=== PATIENT | male | born 2005 | race Caucasian/White ===

== ENCOUNTER 2025-02-04 06:29 | Emergency (ER) | payer OTHER, SELFPAY ==
[2025-02-04 06:31] VITALS: BP 136/90
--- NOTE | 2025-02-04 07:32 | ED.GENMED ---
History of Present Illness
General
Chief Complaint: Throat Problem
Source: patient
Exam Limitations: none
Time Seen by Provider: 02/04/25 07:19
History of Present Illness
History of Present Illness:
19-year-old male presents with 5 days worth of worsening throat pain. He also notes significant congestion and fatigue. No measurable fever. He denies runny nose or cough. No abdominal pain or vomiting or rash. He was seen at the urgent care at
the onset of his symptoms and tests were performed including strep, mono flu and COVID as well as STI testing. All tests are negative. The STI testing is pending. He notes symptoms are worsening. He notes white stuff on his tonsils. He is
healthy otherwise. No other complaints at this time
Phy Exam
Physical Exam
Physical Exam:
General: Well-appearing male no acute respiratory distress
HEENT: Normal cephalic atraumatic TMs normal posterior pharynx with erythema and exudate in the peritonsillar region. No trismus or drooling. No significant adenopathy palpated
Heart: Regular rate and rhythm
Lungs: Clear no wheeze
Abdomen soft nontender
Extremities: No cyanosis
Course
Orders/Labs/Results
Orders:
Orders
02/04/25 07:31
Dexamethasone Sod Phosphate [Decadron] 10 mg IV NOW STA
Ketorolac [Toradol] 15 mg IV NOW STA
02/04/25 07:50
COVID-19 Antigen Urgent
Source: Nasal Swab
Complete Blood Count/With Diff Urgent
Comprehensive Metabolic Panel Urgent
Monotest Urgent
Influenza A+B Rapid Molecular Urgent
CORRY Source: Nasal Swab
Specimen Description:
Rapid Strep Group A Urgent
CORRY Source: Throat/Pharynx
Specimen Description:
Date Specimen was Collected: 02/04/25
Time Specimen was Collected: 07:38
Throat Culture [Throat Culture, Comprehensive] Urgent
CORRY Source: Throat/Pharynx
Specimen Description:
Date Specimen was Collected: 02/04/25
Time Specimen was Collected: 07:38
Abnormal Lab Results
02/04/25
07:50
WBC 13.1 H 10^3/uL
(4.8-10.8)
MCV 76.6 L fL
(80.0-94.0)
MCH 25.7 L pg
(27.0-31.0)
Abs Immat Gran (auto) 0.1 H 10^3/uL
(0-0.05)
Absolute Neuts (auto) 9.9 H 10^3/uL
(1.4-6.5)
Absolute Monos (auto) 1.2 H 10^3/uL
(0.1-0.6)
Lymphocytes % 14.8 L %
(20.5-51.1)
BUN 6 L mg/dl
(9-20)
Glucose 119 H mg/dl
(70-99)
Monoscreen Positive A
(Negative)
02/04/25 07:50
02/04/25 07:50
Vital Signs
Initial and Last Documented VS:
Initial Vital Signs
Temp Pulse Resp BP Pulse Ox
98.9 F 130 20 136/90 96
02/04/25 06:31 02/04/25 06:31 02/04/25 06:31 02/04/25 06:31 02/04/25 06:31
Last Documented Vital Signs
Temp Pulse Resp BP Pulse Ox
98.6 F 95 20 137/84 96
02/04/25 08:13 02/04/25 08:13 02/04/25 08:13 02/04/25 08:13 02/04/25 08:13
MDM/Problems Addressed
Differential Diagnosis Includes:
Patient with sore throat worsening over the past 5 days. Exudative tonsillitis noted on exam. Consider strep pharyngitis versus mono versus COVID or flu. He has STI testing pending. Patient quite symptomatic. Labs ordered monotest ordered
Toradol Decadron ordered.
*Pulse Oximetry
SaO2: 96
Oxygen Mode of Delivery: Room air
Patient hypoxic: no
*Critical Care Note
Total Time (30-74mins, 75-104mins- exclusive of procedures): Not Applicable
Update Note
Update Note:
Patient tested positive for mono COVID flu and strep test were negative. He is feeling better after Toradol and Decadron. Recommend continued hydration with NSAIDs and Tylenol for pain. Liver functions were normal today. Return precautions were
given. Stable for discharge
ED Attending Note
-
Portions of this chart may have been created with voice recognition software.� Occasional wrong word or��sound alike� substitutions may have occurred due to the inherent limitations of voice recognition software.
Discharge Plan
Departure
Patient Disposition: Home (Routine Discharge)
Date of Disposition: 02/04/25
Time of Disposition: 08:51
Patient with high blood pressure during this ER visit?: No
Discharge Problem:
Mononucleosis
Instructions: Mononucleosis (DC)
Prescriptions:
No Action
escitalopram oxalate [Lexapro] 10 mg Tablet
10 mg PO DAILY
Referrals:
NONE,* [Family Provider, Internal Medicine]
Activity Restrictions/Additional Instructions:
Rest. Stay hydrated. Continue with ibuprofen or Tylenol for pain or fever. Return if worse otherwise
Interventions
Interventions:
*Risk Screen - Suicide Last Done: 02/04/25 06:42
*General Assessment Last Done: 02/04/25 06:42
*Neglect/Abuse Screening Last Done: 02/04/25 06:42
*ED- Fall Risk Assessment Last Done: 02/04/25 06:42
*ED COVID-19 Vaccine History Last Done: 02/04/25 06:42
ED-EENT Assessment Last Done: 02/04/25 06:42
ED- Pulmonary Assessment Last Done: 02/04/25 06:42
Discharge Date and Time
Print Language: MALAYSIAN
[2025-02-04 07:51] VITALS: BMI 28.8
[2025-02-04] MEDS: TORADOL 15 MG IV (08:06)
[2025-02-04] MEDS: DECADRON 10 MG IV (08:07)
[2025-02-04 08:13] VITALS: BP 137/84
[2025-02-04 08:17] LABS: Hematocrit 43.3 % (39.0-52.0); Hemoglobin 14.5 g/dL (13.0-18.0); Mean Corp Hgb Conc. 33.5 g/dL (33.0-37.0); Mean Corpuscular Volume 76.6 fL (80.0-94.0); Nucleated Red Blood Cells % 0 % (-); Platelet Count 287 10^3/uL (130-400); Red Cell Dist. Width 12.9 % (11.5-14.5)
[2025-02-04 08:33] LABS: ALT (SGPT) < 10 U/L (0-50); AST (SGOT) 17 U/L (17-59); Albumin 4.8 g/dl (3.5-5.0); Alkaline Phosphatase 104 U/L (38-126); Blood Urea Nitrogen 6 mg/dl (9-20); Calcium 9.4 mg/dl (8.4-10.2); Carbon Dioxide 28 mmol/L (22-30); Chloride 102 mmol/L (98-107); Estimated Creatinine Clearance > 125 ml/min; Glucose 119 mg/dl (70-99); Potassium 3.8 mmol/L (3.5-5.1); Sodium 138 mmol/L (135-145); Total Protein 7.5 g/dl (6.3-8.2); eGFR > 60.00
[2025-02-04 08:43] LABS: COVID-19 Antigen Negative (Negative)
[2025-02-04 09:00] VITALS: BP 145/82
[2025-02-04 10:00] VITALS: BP 139/71
== END 2025-02-04 10:10 | disposition home or self-care (01) ==
LOC: EMR 06:29
PROVIDERS: Physician Assistant; EMERGENCY PHYSICIAN Emergency Medicine
DX: B27.90 Infectious mononucleosis, unspecified without complication (principal); Z11.3 Encounter for screening for infections with a predominantly sexual mode of transmission
CPT/HCPCS: 99283; 96374; 96375; 80053; 85025; 86308; 87070; 87502; 87811; 87880

== ENCOUNTER 2025-02-06 06:39 | Emergency (ER) | payer OTHER, SELFPAY ==
[2025-02-06] VITALS (8 sets, daily range): BP systolic 122–158; BP diastolic 58–95; BMI 28.7
--- NOTE | 2025-02-06 07:21 | ED.GENMED ---
History of Present Illness
<Nickie Black MD, Resident - Last Filed: 02/06/25 16:20>
General
Chief Complaint: Throat Problem
Source: patient
Time Seen by Provider: 02/06/25 06:44
History of Present Illness
History of Present Illness:
Patient is a 19-year-old male who presents to the emergency department after being seen yesterday at the emergency department with complaints of 6 days of worsening throat pain. He has been having congestion and fatigue since the start of his
symptoms. He has no fever no runny nose. He sometimes coughs up clear phlegm. He had no abdominal pain, vomiting, or rashes. He was seen in urgent care and he was tested for strep, mono, flu, COVID, and a STI panel was run. Infectious
mononucleosis serology came back positive and the remaining throat cultures have yet to result. He noted that he saw white stuff on his tonsils. He is able to eat and drink normally and he has not had any change in his voice. Unfortunately, it
hurts when he swallows and that brings him great discomfort. While in the emergency department yesterday he received Toradol and Decadron and that provided substantial relief to him. After discharge the patient continued to take Motrin and mucinex
which helped him. Unfortunately after the Decadron wore off the patient's discomfort returned prompting him to return to the emergency department. His throat discomfort is only slightly better if not the same from his presentation yesterday.
Past History
<Nickie Black MD, Resident - Last Filed: 02/06/25 16:20>
Past History
ED Past Medical History: Psychiatric ( Anxiety and depression)
ED Past Surgical History: None
Social History
Tobacco: Non-smoker
Alcohol: Occasional
Drug: None
Personal: Single
Employment: Student
Review of Systems
<Nickie Black MD, Resident - Last Filed: 02/06/25 16:20>
Review of Systems
Constitutional: Reports sleep disturbance ( difficulty sleeping due to throat pain)
EENT: Reports sore throat ( pain/discomfort while swallowing)
Respiratory: Reports no symptoms
Cardiac: Reports no symptoms
ABD/GI: Reports no symptoms
: Reports no symptoms
Musculoskeletal: Reports no symptoms
Skin: Reports no symptoms
Neurological: Reports no symptoms
Endocrine: Reports no symptoms
Hematologic/Lymphatic: Reports no symptoms
Psychiatric: Reports no symptoms
Phy Exam
<Nickie Black MD, Resident - Last Filed: 02/06/25 16:20>
General Physical Exam
General Presentation: no apparent distress
General age: appears stated age
General Skin: warm and dry
General Habitus: normal
General Mental: alert
General Hydration: appears well hydrated
ENT Exam
ENT Exam: EOMI, TM's normal, pharyngeal erythema and tonsillar exudate ( right-sided tonsillar exudate with possible abscess formation)
Cardiovascular Exam
Cardiovascular Exam: regular rate/rhythm, no edema, no gallop, no JVD and no murmur
Pulmonary Exam
Pulmonary Exam: lungs clear, no respiratory distress, no rales, chest non tender, no crackles, no rhonchi, no stridor, no wheezing and no cough
Gastrointestinal Exam
Gastrointestinal Exam: normal bowel sounds, non tender, soft, no organomegaly, no pulsatile mass and non distended
Skin Exam
Skin Exam: normal color, warm/dry, no rash and no petechia
Psychiatric Exam
Psychiatric Exam: normal mood/affect
Sepsis
<Nickie Black MD, Resident - Last Filed: 02/06/25 16:20>
Sepsis Screening
Sepsis Assessment: Sepsis Ruled Out
Sepsis Screen
Sepsis Screen: Sepsis Ruled Out
Date: 02/06/25
Time: 16:20
Course
<Nickie Black MD, Resident - Last Filed: 02/06/25 16:20>
Orders/Labs/Results
Orders:
Orders
02/06/25 07:16
Dexamethasone Pf [Decadron] 10 mg PO NOW STA
02/06/25 07:30
Ketorolac [Toradol] 10 mg PO NOW STA
02/06/25 08:01
Ibuprofen [Motrin] 400 mg PO NOW STA
02/06/25 08:50
CT Neck With Iv Contrast Urgent
Comment:
Reason For Exam: Pronounced R throat swelling
02/06/25 09:10
0.9% Sodium Chloride 500 ml [Nss] 500 ml IV 70 mls/hr
02/06/25 09:13
Complete Blood Count/With Diff Urgent
Comprehensive Metabolic Panel Urgent
Abnormal Lab Results
02/06/25
09:13
WBC 12.0 H 10^3/uL
(4.8-10.8)
MCV 78.0 L fL
(80.0-94.0)
MCH 25.6 L pg
(27.0-31.0)
MCHC 32.8 L g/dL
(33.0-37.0)
Absolute Neuts (auto) 9.3 H 10^3/uL
(1.4-6.5)
Absolute Monos (auto) 1.0 H 10^3/uL
(0.1-0.6)
Neutrophils % 77.6 H %
(42.2-75.2)
Lymphocytes % 12.8 L %
(20.5-51.1)
BUN 7 L mg/dl
(9-20)
Glucose 110 H mg/dl
(70-99)
AST 14 L U/L
(17-59)
02/06/25 09:13
02/06/25 09:13
Vital Signs
Initial and Last Documented VS:
Initial Vital Signs
Temp Pulse Resp BP Pulse Ox
98.7 F 112 20 158/95 95
02/06/25 06:41 02/06/25 06:41 02/06/25 06:41 02/06/25 06:41 02/06/25 06:41
Last Documented Vital Signs
Temp Pulse Resp BP Pulse Ox
98.7 F 95 17 138/77 98
02/06/25 06:41 02/06/25 16:00 02/06/25 16:00 02/06/25 16:00 02/06/25 16:00
<Kai Iverson MD - Last Filed: 02/06/25 13:12>
Orders/Labs/Results
Orders:
Orders
02/06/25 07:16
Dexamethasone Pf [Decadron] 10 mg PO NOW STA
02/06/25 07:30
Ketorolac [Toradol] 10 mg PO NOW STA
02/06/25 08:01
Ibuprofen [Motrin] 400 mg PO NOW STA
02/06/25 08:50
CT Neck With Iv Contrast Urgent
Comment:
Reason For Exam: Pronounced R throat swelling
02/06/25 09:10
0.9% Sodium Chloride 500 ml [Nss] 500 ml IV 70 mls/hr
02/06/25 09:13
Complete Blood Count/With Diff Urgent
Comprehensive Metabolic Panel Urgent
Abnormal Lab Results
02/06/25
09:13
WBC 12.0 H 10^3/uL
(4.8-10.8)
MCV 78.0 L fL
(80.0-94.0)
MCH 25.6 L pg
(27.0-31.0)
MCHC 32.8 L g/dL
(33.0-37.0)
Absolute Neuts (auto) 9.3 H 10^3/uL
(1.4-6.5)
Absolute Monos (auto) 1.0 H 10^3/uL
(0.1-0.6)
Neutrophils % 77.6 H %
(42.2-75.2)
Lymphocytes % 12.8 L %
(20.5-51.1)
BUN 7 L mg/dl
(9-20)
Glucose 110 H mg/dl
(70-99)
AST 14 L U/L
(17-59)
02/06/25 09:13
02/06/25 09:13
Vital Signs
Initial and Last Documented VS:
Initial Vital Signs
Temp Pulse Resp BP Pulse Ox
98.7 F 112 20 158/95 95
02/06/25 06:41 02/06/25 06:41 02/06/25 06:41 02/06/25 06:41 02/06/25 06:41
Last Documented Vital Signs
Temp Pulse Resp BP Pulse Ox
98.7 F 95 17 138/77 98
02/06/25 06:41 02/06/25 16:00 02/06/25 16:00 02/06/25 16:00 02/06/25 16:00
<Nickie Black MD, Resident - Last Filed: 02/06/25 16:20>
*Pulse Oximetry
SaO2: 95
Oxygen Mode of Delivery: Room air
Patient hypoxic: no
*Critical Care Note
Total Time (30-74mins, 75-104mins- exclusive of procedures): 60
<Nickie Black MD, Resident - Last Filed: 02/06/25 16:20>
Update Note
Update Note:
Problem List:
Sore throat
congestion
fatigue
tonsillar erythema and exudate most pronounced on Right side
Plan:
400 mg Motrin given
10 mg oral Decadron
patient is positive for infectious mononucleosis with pending bacterial throat cultures
Differential Diagnoses:
infectious mononucleosis
viral infection with superimposed bacterial infection
retropharyngeal abscess
peritonsillar abscess
Radiology: not applicable
EKG: not applicable
Labs:
CBC conducted on 02/04/2025 showed leukocytosis with a white blood cell count of 13.1
CMP unremarkable
Updates:
Patient is positive for infectious mononucleosis with pending bacterial throat cultures. It is possible that he may have a bacterial throat infection superimposed on infectious mononucleosis due to the fact that bacterial throat cultures have not
resulted yet and it cannot be ruled out. The patient does not have any voice changes nor does he have difficulty swallowing solids and liquids. On physical exam markedly visible swelling at peritonsillar space with visible exudate. Suspicion of
possible Peritonsillar abscess formation. No lymphadenopathy appreciated.
Patient had leukocytosis with a white blood cell count of 13.1 on 02/04/2025. Today in the emergency department the patient has an elevated blood pressure of 158/95 and a heart rate of 112. The patient is nontoxic and afebrile.
Patient given 10 mg of oral Toradol and 10 mg of oral Decadron.
CT neck with IV contrast ordered suspected peritonsillar abscess
CBC and CMP ordered
IV fluid support
Patient feels only marginal improvement with current treatment given
CT of neck with IV contrast shows enlargement of the right tonsil with decreased enhancement compatible with phlegmon/developing abscess.
ENT consulted for aspiration of abscess
ED Attending Note
<Nickie Black MD, Resident - Last Filed: 02/06/25 16:20>
-
Portions of this chart may have been created with voice recognition software.� Occasional wrong word or��sound alike� substitutions may have occurred due to the inherent limitations of voice recognition software.
<Kai Iverson MD - Last Filed: 02/06/25 13:12>
ED Attending Note
Patient seen and examined by attending physician: Yes
ED Attending Note:
Patient diagnosed with mononucleosis in ED 2 days ago, treated with Decadron and Toradol with improvement, returns to ED complaining of recurrent swelling with pain in his throat. Patient's symptoms started over 1 week ago. There are number of
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 Denies previous history of similar symptoms. Patient otherwise is healthy without any significant medical history. Denies fever or chills. Denies vomiting or diarrhea. Denies loss of appetite.
Patient has been able to swallow and eat, although with mild discomfort secondary to pain. Patient has taken ibuprofen with mild improvement in symptoms.
Physical Exam
General: mild painful distress, not acutely ill. afebrile. tachycardic
Head: nc/at. eomi
Neck: supple. no meningeal signs. right peritonsillar swelling noted with exudate.
Heart: tachycardic
Lungs: no acute respiratory distress. clear bilaterally
Abdomen: normal bowel sounds. not tender.
Neuro: alert and oriented x 3. no focal neurological deficits
Skin: no rash
Psychiatric: well kept. interactive and cooperative
Extremities: no edema. no calf tenderness.
History and exam consistent with right peritonsillar abscess, likely secondary to already confirmed with mononucleosis. However, in light of patient's persistent symptoms, patient will be treated with second dose of Decadron and will consult ENT
for further recommendation, including potential outpatient I&D.
Discussed with on-call ENT physician, , who recommends blood work along with CT scan of neck.
CT neck report reviewed and discussed with who reviewed the image. He will come and evaluate patient in ED, for potential needle aspiration, for symptomatic relief. Afterwards, tentative plan to discharge patient home after 1 additional
dose of Decadron in ED, along with antibiotics.
Discharge Plan
Departure
Prescriptions:
No Action
escitalopram oxalate [Lexapro] 10 mg Tablet
10 mg PO DAILY
Referrals:
Sanjiv Post MD [Family Provider, Family Practice]
Interventions
Interventions:
*Risk Screen - Suicide Last Done: 02/06/25 06:41
*General Assessment Last Done: 02/06/25 07:01
*Neglect/Abuse Screening Last Done: 02/06/25 06:41
*ED- Fall Risk Assessment Last Done: 02/06/25 07:01
*ED COVID-19 Vaccine History Last Done: 02/06/25 07:01
ED-EENT Assessment Last Done: 02/06/25 07:02
ED- Pulmonary Assessment Last Done: 02/06/25 07:02
Discharge Date and Time
Print Language: SERBIAN
[2025-02-06] MEDS: DECADRON 10 MG PO (07:48)
[2025-02-06] MEDS: MOTRIN 400 MG PO (08:05)
[2025-02-06] MEDS: NSS 500 IV (09:14)
[2025-02-06 09:27] LABS: Hematocrit 40.5 % (39.0-52.0); Hemoglobin 13.3 g/dL (13.0-18.0); Mean Corp Hgb Conc. 32.8 g/dL (33.0-37.0); Mean Corpuscular Volume 78.0 fL (80.0-94.0); Nucleated Red Blood Cells % 0 % (-); Platelet Count 297 10^3/uL (130-400); Red Cell Dist. Width 12.9 % (11.5-14.5)
[2025-02-06 09:43] LABS: ALT (SGPT) < 10 U/L (0-50); AST (SGOT) 14 U/L (17-59); Albumin 4.2 g/dl (3.5-5.0); Alkaline Phosphatase 84 U/L (38-126); Blood Urea Nitrogen 7 mg/dl (9-20); Calcium 9.0 mg/dl (8.4-10.2); Carbon Dioxide 30 mmol/L (22-30); Chloride 102 mmol/L (98-107); Estimated Creatinine Clearance > 125 ml/min; Glucose 110 mg/dl (70-99); Potassium 4.0 mmol/L (3.5-5.1); Sodium 138 mmol/L (135-145); Total Protein 6.8 g/dl (6.3-8.2); eGFR > 60.00
--- NOTE | 2025-02-06 17:43 | W.CON.OTO ---
Addendum entered and electronically signed by Chun Flores DO 02/07/25 11:23:
After needle aspiration was initially performed to collect pus for culture, incision and drainage for continued egress and decompression of the abscess was performed in the right peritonsillar region. The patient tolerated this well.
Original Note:
Otolaryngology Consult
Consult
Date/Time Consultation Requested: 02/06/2025 / 9am
Date/Time Consultation Performed: 02/06/2025 4pm
Requesting Provider: Dr. Black
Performing Provider: Dr. Flores
Reason for Consultation: Peritonsillaar abscess
Chief Complaint
sore throat
History of Present Illness
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 He was seen in the emergency department on 02/04 and was diagnosed with mono tonsillitis and
treated with a dose of Decadron and Toradol and discharged home. Symptoms have progressively worsened marked by decreased p.o. intake and odynophagia. He is here today for repeat evaluation. In the emergency department his white blood cell count
was approximately 12. He was in no acute distress and was able to lie flat for a CT scan. CT neck demonstrated a right intratonsillar hypodensity measuring approximately 2.5 x 3 cm. ENT was consulted for evaluation and possible drainage in the
emergency department. He has never had this before. He has not experienced recurrent tonsillitis. No prior head or neck surgery. 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
Medical History
Past Medical History: None
Past Surgical History: None
Patient Allergies:
Allergies
Allergy/AdvReac Type Severity Reaction Status Date / Time
No Known Allergies Allergy Verified 02/06/25 06:42
Home Medications / Current Medications:
�Medication �Instructions �Recorded
amoxicillin 600 mg-potassium 10 ml PO BID 10 days #200 mL 02/06/25
clavulanate 42.9 mg/5 mL oral
suspension (Augmentin ES-)
methylprednisolone 4 mg tablets in See Rx Instructions PO .COMPLEX 02/06/25
a dose pack (Medrol (Sebastien)) #21 ea
Physical Exam
Vitals / Labs:
Vital Signs
Temp 98.7 F 02/06/25 06:41
Temp route: Oral 02/06/25 06:41
Pulse 85 02/06/25 17:15
Resp Rate 17 02/06/25 17:15
Blood pressure 144/81 02/06/25 17:15
Blood pressure extremity used: Left upper arm 02/06/25 14:05
Position: Sitting 02/06/25 14:05
MAP (cuff-Teresa Monitor) 97 02/06/25 17:15
SaO2 98 02/06/25 17:15
Oxygen Mode of Delivery Room air 02/06/25 14:05
Acceptable pain level during hospitalization? 0 02/06/25 06:41
Can the patient verbally communicate their pain? Yes 02/06/25 09:05
Pain scale ratin 02/06/25 09:05
Actual Weight 98.8 kg 02/06/25 07:01
Body Mass Index (BMI) 28.7 02/06/25 07:01
Lab Results
02/06/25 09:13
02/06/25 09:13
Exam:
Otolaryngologic--specialty specific physical exam: No acute distress. Resting comfortably in bed. Mild trismus. Right tonsil 3+ with overt exudate. Left tonsil 1+. Uvula deviated left. No drooling. Neck normal.
Procedure note
Procedure: Needle aspiration peritonsillar abscess
Consent: Verbal
Anesthesia: 1% lidocaine with epinephrine 1 100,000
Details of procedure: After informed verbal consent was obtained from the patient and all questions were answered to the patient's satisfaction, a 23-gauge needle was used to infiltrate 3 cc of 1% lidocaine with epinephrine 1 100,000 into the right
soft palate and peritonsillar region. There was immediate return of pus and decompression during the injection and after. After adequate time for topical anesthesia, an 18-gauge sharp needle on an empty 10 cc syringe was used to aspirate the right
tonsil and peritonsillar region on 3 separate attempts. There was return of a total of 3 to 4 cc of pus which was collected and sent for culture. Patient's mouth was rinsed with 30 cc of sterile saline and suctioned out. The patient felt
immediately better and was able to tolerate p.o. more comfortably. He tolerated the procedure well.
Assessment / Plan
Right peritonsillar abscess
The patient tolerated bedside needle aspiration with immediate improvement in symptoms. Recommend 10-day course of Augmentin 875-125 mg p.o. twice daily and Medrol Dosepak x 1. Recommend outpatient follow-up within 2 to [address] [facility] here to evaluate for resolution and discuss the role for elective tonsillectomy once inflammation and healing is complete.
Data Reviewed
Radiology: Image Personally Visualized and interpreted
CT Scan: Image Personally Visualized and interpreted (Right primarily intratonsillar abscess measuring approximately 2.5 x 2.5 x 3 cm with mild narrowing of the oropharyngeal airway. Left tonsil within normal limits.)
Lab Data: Labs Reviewed by me
== END 2025-02-06 17:26 | disposition home or self-care (01) ==
LOC: EMR 06:39
PROVIDERS: EMERGENCY PHYSICIAN Emergency Medicine; FAMILY PHYSICIAN Family Medicine
DX: J36 Peritonsillar abscess (principal); F41.8 Other specified anxiety disorders; N50.89 Other specified disorders of the male genital organs; Z79.52 Long term (current) use of systemic steroids; Z88.0 Allergy status to penicillin; Z88.1 Allergy status to other antibiotic agents
CPT/HCPCS: 99284; 70491; 80053; 85025; 87070; 87205; Q9967